=== PATIENT | male | born 1960 | race Hispanic/Latino ===

== ENCOUNTER 2016-12-11 18:26 | Observation (INO) | payer OTHER ==
[2016-12-11 18:36] VITALS: BP 123/65; PULSE 88; RESP 16; TEMP 97.1
--- NOTE | 2016-12-11 18:46 | ED PDOC ---
HPI: Psych/Substance Abuse Time Seen by Provider: 12/11/16 18:29 Chief Complaint (Nursing): Alcohol Ingestion Chief Complaint (Provider): Alcohol Intoxication History/Exam Limitations: intoxication Current Symptoms Are (Timing): Still Present Modifying Factor(s): Alcohol Additional Complaint(s): 18:29 Cem Do is a 56 year old male that was brought to the ED via EMS after being found sleeping on the floor of a restaurant. Patient is well-known to EMS , and they state that he is an alcoholic. Patient offers no complaints, and is asking for a blanket. Past Medical History Reviewed: Historical Data, Nursing Documentation, Vital Signs Vital Signs: Last Vital Signs Temp 97.1 F L 12/11/16 18:33 Pulse 88 12/11/16 18:33 Resp 16 12/11/16 18:33 BP 123/65 12/11/16 18:33 Pulse Ox 97 12/11/16 18:33 - Family History Family History: States: Unknown Family Hx - Social History Alcohol: > 2 Drinks/Day - Home Medications Home Medications: Ambulatory Orders Medication Instructions Recorded No Known Home Med [No Known Home 01/30/15 Med] - Allergies Allergies/Adverse Reactions: Allergies Allergy/AdvReac Type Severity Reaction Status Date / Time No Known Allergies Allergy Verified 01/29/15 21:48 Review of Systems Review Of Systems: ROS cannot be obtained secondary to pt's inabilty to answer questions. Physical Exam - Reviewed Nursing Documentation Reviewed: Yes Vital Signs Reviewed: Yes - Physical Exam Appears: Positive for: Non-toxic, No Acute Distress (Patient appears disheveled) Head Exam: Positive for: ATRAUMATIC, NORMOCEPHALIC Skin: Positive for: Normal Color, Warm Cardiovascular/Chest: Positive for: Regular Rate, Rhythm. Negative for: Murmur Respiratory: Positive for: Normal Breath Sounds. Negative for: Wheezing Gastrointestinal/Abdominal: Positive for: Soft. Negative for: Tenderness Extremity: Positive for: Normal ROM Neurologic/Psych: Positive for: Alert, Oriented - Laboratory Results Result Diagrams: 12/11/16 18:50 12/11/16 18:50 - ECG O2 Sat by Pulse Oximetry: 97 (RA) Pulse Ox Interpretation: Normal Medical Decision Making Medical Decision Makin:38 Initial Impression: Alcohol Intoxication Initial Plan: * CBC * CMP * Alcohol Serum * Glucose, Blood, POC * Reevaluation Patient is to be admitted to ED Obs pending ED workup and until reaching clinical sobriety. Scribe Attestation: Documented by Nano Murry, acting as a scribe for Christofer Lopez PA-C. Provider Scribe Attestation: All medical record entries made by the Scribe were at my direction and personally dictated by me. I have reviewed the chart and agree that the record accurately reflects my personal performance of the history, physical exam, medical decision making, and the department course for this patient. I have also personally directed, reviewed, and agree with the discharge instructions and disposition. ED OBSERVATION Discharge: Yes Date of observation admission: 12/11/16 Time of observation admission: 18:38 - Observation admission statement Patient is being placed in observation because:: Patient is to be admitted to ED Obs pending ED workup and until reaching clinical sobriety. - Progress Note Progress Note: 12/11/16 19:36 ETOH: 267 Sleeping comfortably and easily arousable. 12/11/16 21:26 Patient is sleeping comfortably and is easily arousable. 12/11/16 22:53 Gait is steady and unassisted. Pt. is clinically sober. Disposition - Clinical Impression Clinical Impression: Alcohol intoxication - Patient ED Disposition Is Patient to be Admitted: No - Disposition Disposition: Routine/Home Disposition Time: 18:38 Condition: FAIR
[2016-12-11 18:57] LABS: BASO # 0.1 K/uL (0.0-0.2); EOS # 0.7 K/uL (0.0-0.7); EOS % 6.6 % (0.0-4.0); LYMPH # 3.1 K/uL (1.0-4.3); LYMPH % 29.1 % (20.0-40.0); MEAN CELL VOLUME 91.4 fl (80.0-94.0); MEAN CORPUSCULAR HEMOGLOBIN 29.8 pg (27.0-31.0); MEAN CORPUSCULAR HGB CONC 32.6 g/dL (33.0-37.0); MEAN PLATELET VOLUME 7.6 fl (7.2-11.7); MONO # 0.9 K/uL (0.0-0.8); MONO % 8.9 % (0.0-10.0); NEUT # 5.8 K/uL (1.8-7.0); NEUT % 54.4 % (50.0-75.0); NRBC % 0.1 % (0.0-0.0); RED CELL DISTRIBUTION WIDTH 15.3 % (11.5-14.5); WHITE BLOOD COUNT 10.6 K/uL (4.8-10.8)
[2016-12-11 19:17] LABS: ALB/GLOB RATIO 1.1 (1.0-2.1); ALCOHOL SERUM 264 mg/dl (0-10); ALKALINE PHOSPHATASE 62 U/L (38-126); ALT/SGPT 31 U/L (21-72); AST/SGOT 27 U/L (17-59); BILIRUBIN,TOTAL 0.4 mg/dl (0.2-1.3); BLOOD UREA NITROGEN 13 mg/dl (9-20); CALCIUM 9.5 mg/dL (8.4-10.2); CARBON DIOXIDE 21 mmol/L (22-30); CHLORIDE 111 mmol/L (98-107); GFR AFRICAN-AMERICAN > 60; GLUCOSE,RANDOM 91 mg/dL (75-110); POTASSIUM 3.4 MMOL/L (3.6-5.0); SODIUM 150 mmol/l (132-148); TOTAL PROTEIN 7.3 G/DL (6.3-8.2)
[2016-12-11 23:08] VITALS: O2SAT 100
== END 2016-12-11 22:56 | disposition home or self-care (01) ==
LOC: H.ER 18:26 → H.EROBSV 18:38
PROVIDERS: ADMIT Emergency Medicine; ATTEND Emergency Medicine
DX: F10.229 Alcohol dependence with intoxication, unspecified (principal); Y90.8 Blood alcohol level of 240 mg/100 ml or more

== ENCOUNTER 2017-01-29 17:51 | Observation (INO) | payer OTHER ==
[2017-01-29 17:58] VITALS: PULSE 94; RESP 20; TEMP 97.2; O2SAT 98
--- NOTE | 2017-01-29 18:57 | ED PDOC ---
HPI: Psych/Substance Abuse Time Seen by Provider: 01/29/17 18:00 Chief Complaint (Nursing): Alcohol Ingestion Chief Complaint (Provider): etoh History Per: Patient, EMS Additional Complaint(s): 56 year old male presents to ED acutely intoxicated. He is currently non- domiciled and states he drinks daily. Patient states he needs a place to rest. He offers no acute medical complaints. Past Medical History Reviewed: Historical Data, Nursing Documentation, Vital Signs Vital Signs: Last Vital Signs Temp 97.2 F L 01/29/17 17:55 Pulse 94 H 01/29/17 17:55 Resp 20 01/29/17 17:55 BP 154/104 H 01/29/17 17:55 Pulse Ox 98 01/29/17 17:55 - Medical History PMH: Depression - Family History Family History: States: No Known Family Hx - Living Arrangements Living Arrangements: Other (non-domiciled) - Social History Alcohol: > 2 Drinks/Day Drugs: Denies - Home Medications Home Medications: Ambulatory Orders Medication Instructions Recorded No Known Home Med 04/04/13 No Known Home Med [No Known Home 01/30/15 Med] - Allergies Allergies/Adverse Reactions: Allergies Allergy/AdvReac Type Severity Reaction Status Date / Time No Known Allergies Allergy Verified 01/29/17 17:55 Review of Systems ROS Statement: Except As Marked, All Systems Reviewed And Found Negative Psych: Positive for: Other (etoh) Physical Exam - Reviewed Nursing Documentation Reviewed: Yes Vital Signs Reviewed: Yes - Physical Exam Appears: Positive for: Well, Non-toxic, No Acute Distress Skin: Negative for: Rash Eye Exam: Positive for: Normal appearance, EOMI, PERRL Cardiovascular/Chest: Positive for: Regular Rate, Rhythm Respiratory: Positive for: Normal Breath Sounds. Negative for: Respiratory Distress Neurologic/Psych: Positive for: Alert, Other (intoxicated, answers some questions appropriately) - ECG O2 Sat by Pulse Oximetry: 98 Pulse Ox Interpretation: Normal Medical Decision Making Medical Decision Makin56 year old intoxicated male Plan: Fingerstick BAL Admit to ED observation BAL: 191 Fingerstick: 97 ED OBSERVATION Date of observation admission: 01/29/17 Time of observation admission: 18:55 - Observation admission statement Patient is being placed in observation because:: Acute etoh intoxication - Goals of Observation Goals of observation are:: Monitor vital signs and airway pending sobriety - Progress Note Progress Note: 01/29/17 20:00 Patient is asleep, arousable, vital signs stable, no airway compromise 01/29/17 21:45 Patient is asleep, arousable, vital signs stable, no airway compromise 01/29/17 22:27 Patient is awake and alert, has steady gait, stable for discharge Disposition - Clinical Impression Clinical Impression: Alcohol intoxication, Alcohol abuse with intoxication - Patient ED Disposition Is Patient to be Admitted: No Counseled Patient/Family Regarding: Diagnosis, Need For Followup - Disposition Disposition: Routine/Home Disposition Time: 22:28 Condition: STABLE - POA Present On Arrival: None
[2017-01-29 22:48] VITALS: BP 162/91
== END 2017-01-29 22:47 | disposition home or self-care (01) ==
LOC: H.ER 17:51 → H.EROBSV 18:23
PROVIDERS: ADMIT Emergency Medicine; ATTEND Emergency Medicine
DX: F10.129 Alcohol abuse with intoxication, unspecified (principal); F32.9 Major depressive disorder, single episode, unspecified

== ENCOUNTER 2017-02-01 17:01 | Emergency (ER) | payer OTHER ==
[2017-02-01 17:14] VITALS: BP 140/78; PULSE 94; RESP 18; TEMP 97.5; O2SAT 100
--- NOTE | 2017-02-01 17:52 | ED PDOC ---
HPI: Psych/Substance Abuse Time Seen by Provider: 02/01/17 17:06 Chief Complaint (Nursing): Alcohol Ingestion Chief Complaint (Provider): Alcohol ingestion History Per: Patient History/Exam Limitations: no limitations Onset/Duration Of Symptoms: Hrs Current Symptoms Are (Timing): Still Present Suicide/Self Injury Attempted (Context): None Modifying Factor(s): Alcohol Additional Complaint(s): The pt is a 56yo male, brought to the ED by EMS s/p finding the pt publicly intoxicated. 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 Past Medical History Reviewed: Historical Data, Nursing Documentation, Vital Signs Vital Signs: Last Vital Signs Temp 97.5 F L 02/01/17 17:05 Pulse 94 H 02/01/17 17:05 Resp 18 02/01/17 17:05 BP 140/78 02/01/17 17:05 Pulse Ox 100 02/01/17 17:05 - Medical History PMH: Depression - Surgical History Surgical History: No Surg Hx - Family History Family History: States: Unknown Family Hx - Social History Current smoker - smoking cessation education provided: No Alcohol: > 2 Drinks/Day Drugs: Denies - Immunization History Hx Tetanus Toxoid Vaccination: No Hx Influenza Vaccination: No Hx Pneumococcal Vaccination: No - Home Medications Home Medications: Ambulatory Orders Medication Instructions Recorded No Known Home Med 04/04/13 No Known Home Med [No Known Home 01/30/15 Med] - Allergies Allergies/Adverse Reactions: Allergies Allergy/AdvReac Type Severity Reaction Status Date / Time No Known Allergies Allergy Verified 01/29/17 17:55 Review of Systems ROS Statement: Except As Marked, All Systems Reviewed And Found Negative Physical Exam - Reviewed Nursing Documentation Reviewed: Yes Vital Signs Reviewed: Yes - Physical Exam Appears: Positive for: Well, Non-toxic, No Acute Distress Head Exam: Positive for: ATRAUMATIC, NORMAL INSPECTION, NORMOCEPHALIC Skin: Positive for: Normal Color Respiratory: Negative for: Respiratory Distress Neurologic/Psych: Positive for: Alert, Oriented - ECG O2 Sat by Pulse Oximetry: 100 (RA) Pulse Ox Interpretation: Normal Medical Decision Making Medical Decision Making: Time: 1714 Impression: ETOH intoxication Plan: -- Pt to be observed until clinically sober 2139 - Clear speech and steady gait. Scribe Attestation: Documented by Lennie Chamorro, acting as a scribe for RONNY Narayanan Provider Attestation: All medical record entries made by the Scribe were at my direction and personally dictated by me. I have reviewed the chart and agree that the record accurately reflects my personal performance of the history, physical exam, medical decision making, and the department course for this patient. I have also personally directed, reviewed, and agree with the discharge instructions and disposition. Disposition - Clinical Impression Clinical Impression: Alcohol abuse - Patient ED Disposition Is Patient to be Admitted: No - Disposition Disposition: Routine/Home Disposition Time: 21:40 Condition: GOOD Instructions: Abuse of Alcohol (ED)
== END 2017-02-01 21:51 | disposition home or self-care (01) ==
LOC: H.ER 17:01
DX: F10.129 Alcohol abuse with intoxication, unspecified (principal); F32.9 Major depressive disorder, single episode, unspecified

== ENCOUNTER 2017-02-21 19:38 | Emergency (ER) | payer OTHER ==
[2017-02-21 19:43] VITALS: BP 111/84; PULSE 88; RESP 15; TEMP 98.7; O2SAT 95
--- NOTE | 2017-02-21 21:53 | ED PDOC ---
HPI: Psych/Substance Abuse Time Seen by Provider: 02/21/17 19:46 Chief Complaint (Nursing): Alcohol Ingestion Chief Complaint (Provider): Alcohol Ingestion ED Caveat: Intoxicated Current Symptoms Are (Timing): Still Present Additional Complaint(s): 56 y/o male presents to the emergency department for alcohol intoxication prior to arrival. Patient is poor historian. Denies any further medical complaints. Past Medical History Reviewed: Historical Data, Nursing Documentation, Vital Signs Vital Signs: Last Vital Signs Temp 98.7 F 02/21/17 19:41 Pulse 88 02/21/17 19:41 Resp 15 02/21/17 19:41 BP 111/84 02/21/17 19:41 Pulse Ox 95 02/21/17 19:41 - Medical History PMH: Depression - Surgical History Surgical History: No Surg Hx - Family History Family History: States: Unknown Family Hx - Social History Current smoker - smoking cessation education provided: Yes (Heavy Smoker > 10 Cigarettes Daily) Alcohol: > 2 Drinks/Day Drugs: Denies - Immunization History Hx Tetanus Toxoid Vaccination: No Hx Influenza Vaccination: No Hx Pneumococcal Vaccination: No - Home Medications Home Medications: Ambulatory Orders Medication Instructions Recorded No Known Home Med 04/04/13 No Known Home Med [No Known Home 01/30/15 Med] - Allergies Allergies/Adverse Reactions: Allergies Allergy/AdvReac Type Severity Reaction Status Date / Time No Known Allergies Allergy Verified 02/21/17 19:43 Review of Systems Review Of Systems: ROS cannot be obtained secondary to pt's inabilty to answer questions. Physical Exam - Reviewed Nursing Documentation Reviewed: Yes Vital Signs Reviewed: Yes - Physical Exam Appears: Positive for: Non-toxic, No Acute Distress Head Exam: Positive for: ATRAUMATIC, NORMAL INSPECTION, NORMOCEPHALIC Skin: Positive for: Normal Color, Warm, Dry Neck: Positive for: Normal, Supple Cardiovascular/Chest: Positive for: Regular Rate, Rhythm. Negative for: Murmur Respiratory: Positive for: Normal Breath Sounds. Negative for: Accessory Muscle Use, Respiratory Distress Gastrointestinal/Abdominal: Positive for: Normal Exam, Soft. Negative for: Tenderness Extremity: Positive for: Normal ROM. Negative for: Pedal Edema Neurologic/Psych: Positive for: Alert, Oriented - ECG O2 Sat by Pulse Oximetry: 95 (RA) Pulse Ox Interpretation: Normal Medical Decision Making Medical Decision Making: Time: 19:46 Initial Impression: Alcohol Intoxication Initial Plan: --Clinical Sobriety --Reevaluation Clear speech and steady gait at 1130 Scribe Attestation: Documented by Kimmie Paulino, acting as a scribe for Lana Catalan. Provider Scribe Attestation: All medical record entries made by the Scribe were at my direction and personally dictated by me. I have reviewed the chart and agree that the record accurately reflects my personal performance of the history, physical exam, medical decision making, and the department course for this patient. I have also personally directed, reviewed, and agree with the discharge instructions and disposition. Disposition - Clinical Impression Clinical Impression: Alcohol abuse - Disposition Disposition: Routine/Home Disposition Time: 23:22 Condition: GOOD Instructions: Abuse of Alcohol (ED)
== END 2017-02-21 23:39 | disposition home or self-care (01) ==
LOC: H.ER 19:38
DX: F10.129 Alcohol abuse with intoxication, unspecified (principal)

== ENCOUNTER 2017-10-20 20:18 | Emergency (ER) | payer MEDICAID, OTHER ==
[2017-10-20 20:19] VITALS: BMI 29.0
--- NOTE | 2017-10-20 20:42 | ED PDOC ---
HPI: Psych/Substance Abuse Time Seen by Provider: 10/20/17 20:30 Chief Complaint (Nursing): Alcohol Ingestion Chief Complaint (Provider): etoh History Per: Patient, EMS Additional Complaint(s): 57 y/o male brought in by EMS for public alcohol intoxication. PAtient admits to drinking "Too much" tonight. Denies acute medical or psychiatric complaints. Requesting place to sleep. Past Medical History Reviewed: Historical Data, Nursing Documentation, Vital Signs Vital Signs: Last Vital Signs Temp 98.0 F 10/20/17 20:22 Pulse 88 10/20/17 20:22 Resp 16 10/20/17 20:22 BP 144/68 10/20/17 20:22 Pulse Ox 100 10/20/17 20:22 - Medical History PMH: Depression - Surgical History Surgical History: No Surg Hx - Family History Family History: States: Unknown Family Hx - Immunization History Hx Tetanus Toxoid Vaccination: No Hx Influenza Vaccination: No Hx Pneumococcal Vaccination: No - Home Medications Home Medications: Ambulatory Orders Medication Instructions Recorded No Known Home Med 04/04/13 - Allergies Allergies/Adverse Reactions: Allergies Allergy/AdvReac Type Severity Reaction Status Date / Time No Known Allergies Allergy Verified 10/20/17 20:22 Review of Systems ROS Statement: Except As Marked, All Systems Reviewed And Found Negative Physical Exam - Reviewed Nursing Documentation Reviewed: Yes Vital Signs Reviewed: Yes - Physical Exam Appears: Positive for: Well, Non-toxic, No Acute Distress (intoxicated) Head Exam: Positive for: ATRAUMATIC, NORMAL INSPECTION, NORMOCEPHALIC Skin: Positive for: Normal Color Eye Exam: Positive for: Normal appearance Cardiovascular/Chest: Positive for: Regular Rate, Rhythm Respiratory: Positive for: Normal Breath Sounds Gastrointestinal/Abdominal: Positive for: Normal Exam Back: Positive for: Normal Inspection Extremity: Positive for: Normal ROM Neurologic/Psych: Positive for: Alert, Oriented (x2), Other (slurred speech, + AOB) - Laboratory Results Result Diagrams: 10/20/17 20:55 10/20/17 20:55 - ECG O2 Sat by Pulse Oximetry: 100 - Progress ED Course And Treament: labs, accucheck 22:00 Patient sleeping; arousable to verbal stimuli 23:30 Patient sleeping; arousable to verbal stimuli 10/21/17 1:00 Patient sleeping; arousable to verbal stimuli 2:30 Patient sleeping; arousable to verbal stimuli 4:00 Patient sleeping; arousable to verbal stimuli 6:00 Patient awake, alert, oriented x3. Ambulating steady gait. Stable for discharge Disposition - Clinical Impression Clinical Impression: Alcohol abuse - Patient ED Disposition Is Patient to be Admitted: No Counseled Patient/Family Regarding: Studies Performed, Diagnosis, Need For Followup - Disposition Disposition: Routine/Home Disposition Time: 05:50 Condition: STABLE Instructions: Alcohol Abuse and Alcoholism (DC)
[2017-10-20 21:02] LABS: BASO # 0.1 K/uL (0.0-0.2); BASO % 1.4 % (0.0-2.0); EOS # 0.4 K/uL (0.0-0.7); EOS % 4.2 % (0.0-4.0); HEMOGLOBIN 13.3 g/dL (12.0-18.0); LYMPH % 32.7 % (20.0-40.0); MEAN CELL VOLUME 90.9 fl (80.0-94.0); MEAN CORPUSCULAR HEMOGLOBIN 30.8 pg (27.0-31.0); MEAN CORPUSCULAR HGB CONC 33.9 g/dL (33.0-37.0); MONO # 1.1 K/uL (0.0-0.8); MONO % 12.1 % (0.0-10.0); NEUT # 4.5 K/uL (1.8-7.0); NEUT % 49.6 % (50.0-75.0); RBC 4.31 Mil/uL (4.40-5.90); RED CELL DISTRIBUTION WIDTH 15.9 % (11.5-14.5)
[2017-10-20 22:04] LABS: ALB/GLOB RATIO 1.4 (1.0-2.1); ALBUMIN 4.1 g/dL (3.5-5.0); ALT/SGPT 37 U/L (21-72); AST/SGOT 34 U/L (17-59); BLOOD UREA NITROGEN 23 mg/dl (9-20); GFR AFRICAN-AMERICAN > 60; GFR NON-AFRICAN AMERICAN > 60
[2017-10-21 05:38] VITALS: PULSE 83
[2017-10-21 05:40] VITALS: BP 123/75; RESP 16; TEMP 98.5
[2017-10-21 05:48] VITALS: O2SAT 100
== END 2017-10-21 05:40 | disposition home or self-care (01) ==
LOC: H.ER 20:18
DX: F10.129 Alcohol abuse with intoxication, unspecified (principal); F32.9 Major depressive disorder, single episode, unspecified